=== PATIENT | female | born 1975 | race Caucasian/White ===

== ENCOUNTER 2022-03-24 08:20 | Emergency (ER) | payer OTHER ==
[2022-03-24] MEDS ORDERED: Pepcid 20 MG VIAL IV ONE ×2 (08:29→09:07)
[2022-03-24] MEDS ORDERED: solu-MEDROL 125 MG, Sterile H2O 10 ml 2 ML IV ONE ×2 (08:29)
[2022-03-24] MEDS ORDERED: BENADRYL 50 MG/ML IV ONE (08:29)
[2022-03-24] MEDS ORDERED: Sodium Chloride 0.9% 1000 ML 1,000 ML IV SCH (08:30)
[2022-03-24] MEDS ORDERED: ROCEPHIN 1 Gm-D5w 50 ml Bag** 1 G/50 ML IVPB IV STA (08:33)
[2022-03-24 09:04] LABS: Absolute Neutrophil Ct (ANC) 8.17 x10^3/uL (1.4-6.9); BASOPHIL % 0.6 % (0.0-0.4); Basophil (Absolute #) 0.07 x10^3/uL (0-0.4); Eosinophil % 7.1 % (0.00-5.0); Hematocrit 36.5 % (35-47); Hemoglobin 11.9 g/dL (12.0-16.0); IMMATURE GRAN # 0.04 x10^3u/L (0.00-0.03); IMMATURE GRAN % 0.4 % (0.00-0.4); Lymphocyte (Absolute #) 1.55 x10^3/uL (1.0-4.6); Lymphocytes % 13.8 % (24.0-44.0); Mean Cell Volume 85.5 fL (78-100); Mean Corpuscular Hemoglobin 27.9 pg (26-32); Mean Corpuscular Hgb Concent. 32.6 g/dL (32-36); Mean Platelet Volume 9.5 fL (7.5-11.0); Monocyte (Absolute #) 0.61 x10^3/uL (0.0-1.3); Monocytes % 5.4 % (0.0-12.0); Neutrophil % 72.7 % (36.0-66.0); Platelet Count 348 x10^3/uL (150-450); Red Blood Count 4.27 x10^6/uL (4.1-5.4); Red Cell Distribution Width 12.9 % (11.5-14.0); White Blood Count 11.2 x10^3/uL (4.0-10.5)
[2022-03-24] MEDS ORDERED: Sterile H2O 10 ml IJ ONE (09:07)
[2022-03-24] MEDS ORDERED: BENADRYL 50 MG/ML ONE (09:07)
[2022-03-24] MEDS ORDERED: solu-MEDROL ONE (09:08)
[2022-03-24] MEDS ORDERED: Sodium Chloride 0.9% 1000 ML 1,000 ML ONE (09:08)
[2022-03-24] MEDS ORDERED: ROCEPHIN 1 Gm-D5w 50 ml Bag** 1 G/50 ML IVPB IV ONE (09:08)
[2022-03-24 09:19] LABS: ALBUMIN 3.8 g/dL (3.5-5.0); ALKALINE PHOSPHATASE 118 U/L (38-126); ANION GAP 7.9 MEQ/L (5-15); BLOOD UREA NITROGEN 10 mg/dL (7-17); CHLORIDE 106 mmol/L (98-107); Calcium 8.4 mg/dL (8.4-10.2); Carbon Dioxide 27 mmol/L (22-30); Glucose 100 mg/dL (74-106); Potassium 4.1 mmol/L (3.5-5.1); SGOT/AST 27 U/L (14-36); SGPT/ALT 15 U/L (0-35); SODIUM 137 mmol/L (137-145); Total Protein 7.6 g/dL (6.3-8.2)
[2022-03-24 09:25] LABS: Creatinine 1 0.75 mg/dL (0.52-1.04); EST GLOMERULAR FILTRATION RATE > 60.0 ML/MIN
--- NOTE | 2022-03-24 09:41 | ERPHSYRPT ---
- History of Present Illness Time Seen by Provider: 03/24/22 08:40 Source: patient Exam Limitations: no limitations Patient Subjective Stated Complaint: Swelling of face, tightness in face and neck, SOB, rash to face, chest, stomach. Patient states that she scratched herse lf under her left eye a little over a week ago. Patient seen at the [facility] on 03/15/22 and given oral antibiotics and creams. Patient has completed the oral antibiotics but still uses the creams. Patient indicates the swelling and rash began prior to using the medications given to her at the [facility]. Patient states the swelling increased a lot during the night last night and the tightness and SOB is new this morning. Triage Nursing Assessment: Patient ambulated back to ER. No SOB noted; 02 sats 100% on room air. She is alert and oriented. Swelling is noted to face. Fluid noted in left eyelid. Crust and redness noted to left side of nose and down left side of face. Patient has a rash to her check and neck as well. The rash to chest and neck is difference in appearance than the one to her face. Neck and chest is in clusters of dry, scales. Physician History: Patient is a 46-year-old white female who presents with a complaint of facial swelling she had a small scratch self-inflicted to the side of the nose approximately 10 to 12 days ago after a few days she noticed some redness she went to the [facility] and was put on 2 topical antibiotics and Keflex by mouth. Prior to the onset of use of medicines she had swelling of the face this is spread with a rash now on the abdomen top of her head and a yellow crusted ra sh on the face primarily. Timing/Duration: week(s) (2) Quality: burning, itchy, painful Severity: moderate Location: scalp, face, torso Possible Causes: exposure to illness, exposure to allergen Allergies/Adverse Reactions: lithium Allergy (Verified 03/24/22 08:26) lurasidone [From Latuda] Allergy (Verified 03/24/22 08:26) morphine Allergy (Verified 03/24/22 08:25) prochlorperazine [From Compazine] Allergy (Verified 03/24/22 08:26) Sulfa (Sulfonamide Antibiotics) Allergy (Verified 03/24/22 08:26) Home Medications: Atorvastatin Calcium [Lipitor] 1 tab PO HS 03/24/22 [History] Brexpiprazole [Rexulti] 1 tab PO DAILY 03/24/22 [History] Hydroxyzine HCl 25 mg [Atarax 25 mg] See Rx Instructions .ROUTE .COMPLEX PRN 03/24/22 [History] Ketoconazole Cream [Nizoral CREAM] 1 dose TOP DAILY 03/24/22 [History] Levothyroxine Sodium 25 Mcg [Synthroid 25 Mcg] 1 tab PO DAILY 03/24/22 [History] Lumateperone Tosylate [Caplyta] 1 tab PO DAILY 03/24/22 [History] Mupirocin [Bactroban OINTMENT] 1 dose TOP TID 03/24/22 [History] Naltrexone HCl 1 tab PO DAILY 03/24/22 [History] Omeprazole 1 tab PO DAILY 03/24/22 [History] Propranolol HCl [Inderal ] 10 mg PO TID 03/24/22 [History] Vilazodone HCl 1 tab PO DAILY 03/24/22 [History] Hx Tetanus, Diphtheria Vaccination/Date Given: Yes Hx Influenza Vaccination/Date Given: Yes Hx Pneumococcal Vaccination/Date Given: No Immunizations Up to Date: Yes Travel Risk - International Travel Have you traveled outside of the country in past 3 weeks: No - Coronavirus Screening Are you exhibiting any of the following symptoms?: Yes Symptoms: Shortness of Breath Close contact with a COVID-19 positive Pt in past 14-21 Days: No - Vaccine Status Have you recieved a Covid-19 vaccination: Yes [employer]: [employer] - Vaccination Dates Date of 2cond Vaccination (if applicable): ? - Review of Systems Constitutional: No Fever, No Chills Eyes: No Symptoms Ears, Nose, & Throat: No Symptoms Respiratory: No Cough, No Dyspnea Cardiac: No Chest Pain, No Edema, No Syncope Abdominal/Gastrointestinal: No Abdominal Pain, No Nausea, No Vomiting, No Diarrhea Genitourinary Symptoms: No Dysuria Musculoskeletal: No Back Pain, No Neck Pain Skin: Pruritis, Rash Neurological: No Dizziness, No Focal Weakness, No Sensory Changes Psychological: Anxiety, Depression, Mood Changes Endocrine: No Symptoms All Other Systems: Reviewed and Negative - Past Medical History Pertinent Past Medical History: Yes ENT History: Other Cardiac History: High Cholesterol, Hypertension Endocrine Medical History: Hypothyroidism GI Medical History: GERD, Gallbladder Disease Psycho-Social History: Anxiety, Bipolar, Other Other Medical History: IBS, PTSD, Insomnia - Past Surgical History Past Surgical History: Yes Gastrointestinal: Cholecystectomy Female Surgical History: Dilation & Curettage, Section, Tubal Ligation Other Surgical History: oral surgery, lasik, one ovary removed, cystic mass removal, coccyx removed - Social History Smoking Status: Never smoker Exposure to second hand smoke: No Drug Use: none Patient Lives Alone: No - Female History Hx Now: No - Nursing Vital Signs Nursing Vital Signs: Initial Vital Signs Temperature 98 F 03/24/22 08:29 Pulse Rate 82 03/24/22 08:29 Respiratory Rate 18 03/24/22 08:29 Blood Pressure 118/93 03/24/22 08:29 O2 Sat by Pulse Oximetry 100 03/24/22 08:29 Pain Scale Pain Intensity 0 - Physical Exam General Appearance: no apparent distress, alert Eye Exam: PERRL/EOMI, eyes nml inspection Ears, Nose, Throat Exam: normal ENT inspection, pharynx normal, moist mucous membranes Neck Exam: normal inspection, non-tender, supple, full range of motion Respiratory Exam: normal breath sounds, lungs clear, No respiratory distress Cardiovascular Exam: regular rate/rhythm, normal heart sounds Gastrointestinal/Abdomen Exam: soft, mass, No tenderness Back Exam: normal inspection, normal range of motion, No CVA tenderness, No vertebral tenderness Extremity Exam: normal inspection, normal range of motion Neurologic Exam: alert, oriented x 3, cooperative, normal mood/affect, sensation nml, No motor deficits Skin Exam: rash, other (There is a honey colored crusting rash on both sides of the face and the nose area. There is a slightly erythematous area on the top of the scalp and the lower abdomen.) SpO2 Interpretation: normal SpO2: 100 O2 Delivery: Room Air - Course Nursing assessment & vital signs reviewed: Yes - Radiology Exams Chest X-ray Interpretation: Reviewed by me, Negative Ordered Tests: Active Orders 24 hr Category Date Time Status IV Insertion STAT Care 03/24/22 08:29 Active CHEST 1 VIEW (PORTABLE) Stat Exams 03/24/22 08:29 Completed BLOOD CULTURE Stat Lab 03/24/22 09:00 Received CBC W DIFF Stat Lab 03/24/22 09:00 Completed CMP Stat Lab 02/01/23 09:00 Completed CULTURE,WOUND Stat Lab 03/24/22 09:25 Ordered Lactic Acid Stat Lab 03/24/22 09:00 Completed SED RATE [Erythrocyte Sedimentation Rate] Stat Lab 03/24/22 09:00 Completed Medication Summary Generic Name Dose Route Start Last Admin Trade Name Freq PRN Reason Stop Dose Admin Sodium Chloride 1,000 mls @ 100 mls/hr 03/24/22 08:30 03/24/22 09:11 Sodium Chloride 0.9% 1000 Ml IV 04/23/22 08:29 100 mls/hr .Q10H AMARILYS Administration Doxycycline Hyclate 100 mg/ 100 mls @ 100 mls/hr 03/24/22 10:00 Dextrose IV 04/23/22 09:59 Q12HT AMARILYS Discontinued Medications Generic Name Dose Route Start Last Admin Trade Name Jackq PRN Reason Stop Dose Admin Methylprednisolone Sodium 0 mg 03/24/22 08:29 03/24/22 09:16 Succinate 125 mg/ Sterile IV 03/24/22 08:30 125 mg Water 2 ml STAT ONE Administration Diphenhydramine HCl 50 mg 03/24/22 08:29 03/24/22 09:18 Diphenhydramine Hcl 50 Mg/Ml Vial IV 03/24/22 08:30 50 mg STAT ONE Administration Diphenhydramine HCl Confirm 03/24/22 09:07 Diphenhydramine Hcl 50 Mg/Ml Vial Administered 03/24/22 09:08 Dose 50 mg .ROUTE .STK-MED ONE Famotidine 20 mg 03/24/22 08:29 03/24/22 09:18 Famotidine 20 Mg/1 Vial IV 03/24/22 08:30 20 mg STAT ONE Administration Famotidine Confirm 03/24/22 09:07 Famotidine 20 Mg/1 Vial Administered 03/24/22 09:08 Dose 20 mg IV .STK-MED ONE Ceftriaxone Sodium/Dextrose 1 g in 50 mls @ 100 mls/hr 03/24/22 08:33 03/24/22 09:19 Rocephin 1 Gm-D5w 50 Ml Bag IV 03/24/22 09:02 100 mls/hr STAT STA 100 mls/hr Administration Ceftriaxone Sodium/Dextrose Confirm 03/24/22 09:08 Rocephin 1 Gm-D5w 50 Ml Bag Administered 03/24/22 09:09 Dose 1 g in 50 mls @ ud IV .STK-MED ONE Methylprednisolone Sodium Succinate Confirm 03/24/22 09:08 Methylprednis Sod Succ 125 Mg/2 Ml Vial Administered 03/24/22 09:09 Dose 125 mg .ROUTE .STK-MED ONE Sterile Water Confirm 03/24/22 09:07 Water For Injection,Sterile 10 Ml Vial Administered 03/24/22 09:08 Dose 10 ml IJ .STK-MED ONE Lab/Rad Data: Laboratory Result Diagrams 03/24/22 09:00 03/24/22 09:00 Laboratory Results 03/24/22 03/24/22 03/24/22 Range/Units 09:00 09:00 09:00 WBC (4.0-10.5) x10^3/uL RBC (4.1-5.4) x10^6/uL Hgb (12.0-16.0) g/dL Hct (35-47) % MCV (78-100) fL MCH (26-32) pg MCHC (32-36) g/dL RDW (11.5-14.0) % Plt Count (150-450) x10^3/uL MPV (7.5-11.0) fL Gran % (36.0-66.0) % Immature Gran % (Auto) (0.00-0.4) % Nucleat RBC Rel Count (0.00-0.1) % Eos # (Auto) (0-0.5) x10^3/uL Immature Gran # (Auto) (0.00-0.03) x10^3u/L Absolute Lymphs (auto) (1.0-4.6) x10^3/uL Absolute Monos (auto) (0.0-1.3) x10^3/uL Absolute Nucleated RBC (0.00-0.01) x10^3u/L Lymphocytes % (24.0-44.0) % Monocytes % (0.0-12.0) % Eosinophils % (0.00-5.0) % Basophils % (0.0-0.4) % Absolute Granulocytes (1.4-6.9) x10^3/uL Basophils # (0-0.4) x10^3/uL ESR 2 (0-20) mm/hr Sodium 137 (137-145) mmol/L Potassium 4.1 (3.5-5.1) mmol/L Chloride 106 (98-107) mmol/L Carbon Dioxide 27 (22-30) mmol/L Anion Gap 7.9 (5-15) MEQ/L BUN 10 (7-17) mg/dL Creatinine 0.75 (0.52-1.04) mg/dL Estimated GFR > 60.0 ML/MIN Glucose 100 (74-106) mg/dL Lactic Acid 1.1 (0.4-2.0) Calcium 8.4 (8.4-10.2) mg/dL Total Bilirubin 0.60 (0.2-1.3) mg/dL AST 27 (14-36) U/L ALT 15 (0-35) U/L Alkaline Phosphatase 118 (38-126) U/L Serum Total Protein 7.6 (6.3-8.2) g/dL Albumin 3.8 (3.5-5.0) g/dL 03/24/22 Range/Units 09:00 WBC 11.2 H (4.0-10.5) x10^3/uL RBC 4.27 (4.1-5.4) x10^6/uL Hgb 11.9 L (12.0-16.0) g/dL Hct 36.5 (35-47) % MCV 85.5 (78-100) fL MCH 27.9 (26-32) pg MCHC 32.6 (32-36) g/dL RDW 12.9 (11.5-14.0) % Plt Count 348 (150-450) x10^3/uL MPV 9.5 (7.5-11.0) fL Gran % 72.7 H (36.0-66.0) % Immature Gran % (Auto) 0.4 (0.00-0.4) % Nucleat RBC Rel Count 0.0 (0.00-0.1) % Eos # (Auto) 0.80 H (0-0.5) x10^3/uL Immature Gran # (Auto) 0.04 H (0.00-0.03) x10^3u/L Absolute Lymphs (auto) 1.55 (1.0-4.6) x10^3/uL Absolute Monos (auto) 0.61 (0.0-1.3) x10^3/uL Absolute Nucleated RBC 0.00 (0.00-0.01) x10^3u/L Lymphocytes % 13.8 L (24.0-44.0) % Monocytes % 5.4 (0.0-12.0) % Eosinophils % 7.1 H (0.00-5.0) % Basophils % 0.6 (0.0-0.4) % Absolute Granulocytes 8.17 H (1.4-6.9) x10^3/uL Basophils # 0.07 (0-0.4) x10^3/uL ESR (0-20) mm/hr Sodium (137-145) mmol/L Potassium (3.5-5.1) mmol/L Chloride (98-107) mmol/L Carbon Dioxide (22-30) mmol/L Anion Gap (5-15) MEQ/L BUN (7-17) mg/dL Creatinine (0.52-1.04) mg/dL Estimated GFR ML/MIN Glucose (74-106) mg/dL Lactic Acid (0.4-2.0) Calcium (8.4-10.2) mg/dL Total Bilirubin (0.2-1.3) mg/dL AST (14-36) U/L ALT (0-35) U/L Alkaline Phosphatase (38-126) U/L Serum Total Protein (6.3-8.2) g/dL Albumin (3.5-5.0) g/dL - Progress Progress: improved - Departure Departure Disposition: Home Clinical Impression: Impetigo, Eczema Condition: Stable Critical Care Time: No Instructions: Impetigo (DC) Prescriptions: Prednisone 10 mg [Deltasone 10 mg] 20 mg PO TID 6 Days #24 tablet Doxycycline Hyclate 100 mg [Vibramycin 100 MG] 100 mg PO BID 10 Days #20 tab
--- NOTE | 2022-03-24 09:48 | XRAY ---
Indication: Short of breath. Comparison: None Portable chest demonstrates normal heart, lungs, and bony thorax with incidental left apical calcified granuloma.
[2022-03-24] MEDS ORDERED: VIBRAMYCIN 100 MG*** 100 MG in Dextrose 5%/Water IV Soln. 100ML PLUS BAG 100 ML IV SCH (10:00)
[2022-03-24] MEDS ORDERED: Vibramycin 100 MG ONE (11:17)
[2022-03-24] MEDS ORDERED: Vibramycin 100 MG PO ONE (11:19)
[2022-03-24 11:23] VITALS: BP 125/70; PULSE 73; O2SAT 97
== END 2022-03-24 11:30 | disposition home or self-care (01) ==
LOC: ED 08:20
DX: L01.00 Impetigo, unspecified (principal); L01.1 Impetiginization of other dermatoses; E78.5 Hyperlipidemia, unspecified; I10 Essential (primary) hypertension; Z79.52 Long term (current) use of systemic steroids; Z79.899 Other long term (current) drug therapy
CPT/HCPCS: 36000; 36415; 71045; 80053; 83605; 85025; 85652; 86140; 87040; 87070; 96365; 96374; 96375; 99284; J0696; J1200; J2930; A9270-GY

== ENCOUNTER 2023-05-05 17:37 | Emergency (ER) | payer OTHER ==
[2023-05-05 18:38] VITALS: TEMP 98.7
[2023-05-05 19:08] LABS: Absolute Neutrophil Ct (ANC) 5.35 x10^3/uL (1.4-6.9); BASOPHIL % 0.9 % (0.0-0.4); Basophil (Absolute #) 0.07 x10^3/uL (0-0.4); Eosinophil (Absolute #) 0 x10^3/uL (0-0.5); Hematocrit 33.1 % (35-47); Hemoglobin 10.3 g/dL (12.0-16.0); IMMATURE GRAN # 0.03 x10^3u/L (0.00-0.03); IMMATURE GRAN % 0.4 % (0.00-0.4); Lymphocyte (Absolute #) 1.96 x10^3/uL (1.0-4.6); Lymphocytes % 24.5 % (24.0-44.0); Mean Cell Volume 85.5 fL (78-100); Mean Corpuscular Hemoglobin 26.6 pg (26-32); Mean Corpuscular Hgb Concent. 31.1 g/dL (32-36); Monocytes % 7.5 % (0.0-12.0); Neutrophil % 66.7 % (36.0-66.0); Platelet Count 328 x10^3/uL (150-450); Red Blood Count 3.87 x10^6/uL (4.1-5.4); Red Cell Distribution Width 13.1 % (11.5-14.0)
[2023-05-05 19:36] LABS: ACETAMINOPHEN < 10 ug/ml (10-30); ALBUMIN 3.7 g/dL (3.5-5.0); ALKALINE PHOSPHATASE 94 U/L (38-126); ANION GAP 11.6 MEQ/L (5-15); BLOOD UREA NITROGEN 12 mg/dL (7-17); CHLORIDE 108 mmol/L (98-107); Calcium 8.5 mg/dL (8.4-10.2); Carbon Dioxide 25 mmol/L (22-30); Creatinine 1 1.01 mg/dL (0.52-1.04); EST GLOMERULAR FILTRATION RATE 68.2 ML/MIN; ETHYL ALCOHOL < 10 mg/dL (0-10); Glucose 98 mg/dL (74-106); Potassium 3.6 mmol/L (3.5-5.1); SALICYLATE < 1.0 mg/dL (2-20); SGOT/AST 19 U/L (14-36); SGPT/ALT 14 U/L (0-35); SODIUM 140 mmol/L (135-145); Total Protein 7.3 g/dL (6.3-8.2)
[2023-05-05 19:48] LABS: Appearance Turbid (Clear); Bilirubin Small (Negative); Blood Moderate (Negative); Epithelial Cells None Seen /HPF (None Seen); Glucose, Urine Negative (Negative); Hyaline Casts NONE SEEN /LPF (0-2); Ketones Negative (Negative); Leukocyte Esterase Moderate (Negative); Nitrite Positive (Negative); Protein,Urine Dip 100 (Negative); RBC >100 /HPF (0-5); Specific Gravity 1.025 (1.005-1.030); Urobilinogen 0.2 mg/dL (0.2); WBC 21-50 /HPF (0-5)
[2023-05-05 19:49] LABS: ADD URINE CULTURE? YES (NO); Bacteria Many /HPF (None Seen)
[2023-05-05] MEDS ORDERED: KEFLEX 500 MG ONE (19:59)
[2023-05-05] MEDS: KEFLEX 500 MG PO ONE (20:00)
[2023-05-05 20:15] LABS: Amphetamine,Urine NEGATIVE (NEGATIVE); Barbiturate,Urine NEGATIVE (NEGATIVE); Benzodiazepine,Urine NEGATIVE (NEGATIVE); Cocaine,Urine NEGATIVE (NEGATIVE); Methadone,Urine NEGATIVE (NEGATIVE); Opiate,Urine NEGATIVE (NEGATIVE); PCP,Urine NEGATIVE (NEGATIVE); THC,Urine NEGATIVE (NEGATIVE)
--- NOTE | 2023-05-05 20:21 | ERPHSYRPT ---
- History of Present Illness Time Seen by Provider: 05/05/23 18:55 Patient Subjective Stated Complaint: C/O feeling sad, depressed. Patient with suicidal ideations today. States she concidered driving herself into a tree to day in her vehicle and believes that she would have done it if her wouldn't have been in the vehicle with her. Triage Nursing Assessment: Patient brought back to ER with a staff member from the [facility]. Patient is anxious and tearful at times. She is cooperative with staff. AGUSTIN SU. No SOB. Physician History: 47-year-old female with history of anxiety/depression/bipolar disorder/PTSD presented in the ER with suicidal ideations from [facility]. Patient reports she has been feeling low for quite some time and feels better to be . Patient reports already has of hopelessness/helplessness. This morning she was driving with her and all of a sudden she started to feel suicidal and expressed her thoughts of driving truck into the trees to make an end of this. Denies any homicidal ideations. Patient denies any alcohol/substance use. No previous suicidal attempts but did have thoughts without any plans. Allergies/Adverse Reactions: lithium Allergy (Verified 05/05/23 18:09) lurasidone [From Latuda] Allergy (Verified 05/05/23 18:09) morphine Allergy (Verified 05/05/23 18:09) prochlorperazine [From Compazine] Allergy (Verified 05/05/23 18:09) Sulfa (Sulfonamide Antibiotics) Allergy (Verified 05/05/23 18:09) Home Medications: Atorvastatin Calcium [Lipitor] 20 mg PO HS 03/24/22 [History] Hydroxyzine HCl 25 mg [Atarax 25 mg] See Rx Instructions .ROUTE .COMPLEX PRN 03/24/22 [History] Levothyroxine Sodium 25 Mcg [Synthroid 25 Mcg] 1 tab PO DAILY 03/24/22 [History] Lumateperone Tosylate [Caplyta] 42 mg PO DAILY 03/24/22 [History] Omeprazole 1 tab PO DAILY 03/24/22 [History] Propranolol HCl [Inderal ] 15 mg PO TID 03/24/22 [History] Famotidine 1 tab PO HS 05/05/23 [History] Vilazodone HCl 1 tab PO DAILY 05/05/23 [History] Vilazodone HCl 1 tab PO DAILY 05/05/23 [History] Hx Tetanus, Diphtheria Vaccination/Date Given: Yes Hx Influenza Vaccination/Date Given: Yes Hx Pneumococcal Vaccination/Date Given: No Immunizations Up to Date: Yes Travel Risk - International Travel Have you traveled outside of the country in past 3 weeks: No - Coronavirus Screening Are you exhibiting any of the following symptoms?: No Close contact with a COVID-19 positive Pt in past 14-21 Days: No - Vaccine Status Have you recieved a Covid-19 vaccination: Yes [employer]: [employer] - Vaccination Dates Date of 2cond Vaccination (if applicable): ? - Past Medical History Pertinent Past Medical History: Yes ENT History: Other Cardiac History: High Cholesterol, Hypertension Endocrine Medical History: Hypothyroidism GI Medical History: GERD, Gallbladder Disease Psycho-Social History: Anxiety, Bipolar, Depression, Other Other Medical History: IBS, PTSD, Insomnia - Past Surgical History Past Surgical History: Yes Gastrointestinal: Cholecystectomy Female Surgical History: Dilation & Curettage, Section, Tubal Ligation Other Surgical History: oral surgery, lasik, one ovary removed, cystic mass removal, coccyx removed - Social History Smoking Status: Never smoker Exposure to second hand smoke: No Drug Use: none Patient Lives Alone: No - Female History Hx Last Menstrual Period: NOW Hx Now: No (tubal) - Review of Systems Constitutional: No Symptoms Eyes: No Symptoms Ears, Nose, & Throat: No Symptoms Respiratory: No Symptoms Cardiac: No Symptoms Abdominal/Gastrointestinal: No Symptoms Genitourinary Symptoms: No Symptoms Musculoskeletal: No Symptoms Skin: No Symptoms Neurological: No Symptoms Psychological: Anxiety, Depression, Suicidal Ideations Endocrine: No Symptoms Hematologic/Lymphatic: No Symptoms Immunological/Allergic: No Symptoms - Nursing Vital Signs Nursing Vital Signs: Initial Vital Signs Temperature 98.7 F 05/05/23 18:16 Pulse Rate 85 05/05/23 18:16 Respiratory Rate 16 05/05/23 18:16 Blood Pressure 153/84 05/05/23 18:16 O2 Sat by Pulse Oximetry 97 05/05/23 18:16 Pain Scale Pain Intensity 0 - Physical Exam General Appearance: no apparent distress, alert, anxiety Eyes, Ears, Nose, Throat Exam: normal ENT inspection Neck Exam: normal inspection, non-tender, supple, full range of motion Respiratory Exam: normal breath sounds, lungs clear Cardiovascular Exam: regular rate/rhythm, normal heart sounds Gastrointestinal/Abdominal Exam: soft, normal bowel sounds, No tenderness Extremities Exam: normal inspection Current Suicidality: denies suicide plan Neurological Exam: alert, calm, insurance claim representative II-XII nml as tested, oriented x 3, No normal mood/affect Appearance: appropriate appearance, appropriate insight, neat, no memory impairment Behavior/Eye Contact/Speech: alert & cooperative, cooperative, good eye contact, normal speech Thoughts/Hallucinations: normal thought pattern, no apparent hallucination Skin Exam: normal color SpO2 Interpretation: normal SpO2: 97 O2 Delivery: Room Air Ordered Tests: Active Orders 24 hr Category Date Time Status Clean Catch Urine Specimen STAT Care 05/05/23 18:51 Active ACETAMINOPHEN Stat Lab 05/05/23 19:00 Completed CBC W DIFF Stat Lab 05/05/23 19:00 Completed CMP Stat Lab 05/05/23 19:00 Completed CULTURE,URINE Stat Lab 05/05/23 18:54 Received ETHYL ALCOHOL Stat Lab 05/05/23 19:00 Completed SALICYLATE Stat Lab 05/05/23 19:00 Completed UA W/RFX UR CULTURE Stat Lab 05/05/23 18:54 Completed Urine Triage Profile Stat Lab 05/05/23 18:55 Completed Medication Summary Discontinued Medications Generic Name Dose Route Start Last Admin Trade Name Jackq PRN Reason Stop Dose Admin Cephalexin HCl 500 mg 05/05/23 19:50 05/05/23 20:00 Cephalexin Mh500 Mg Capsule PO 05/05/23 19:51 500 mg STAT ONE Administration Cephalexin HCl Confirm 05/05/23 19:59 Cephalexin Mh500 Mg Capsule Administered 05/05/23 20:00 Dose 500 mg .ROUTE .STtrueEX-MED ONE Lab/Rad Data: Laboratory Result Diagrams 05/05/23 19:00 05/05/23 19:00 Laboratory Results 05/05/23 05/05/23 05/05/23 Range/Units 19:00 19:00 18:55 WBC 8.0 (4.0-10.5) x10^3/uL RBC 3.87 L (4.1-5.4) x10^6/uL Hgb 10.3 L (12.0-16.0) g/dL Hct 33.1 L (35-47) % MCV 85.5 (78-100) fL MCH 26.6 (26-32) pg MCHC 31.1 L (32-36) g/dL RDW 13.1 (11.5-14.0) % Plt Count 328 (150-450) x10^3/uL MPV 9.0 (7.5-11.0) fL Gran % 66.7 H (36.0-66.0) % Immature Gran % (Auto) 0.4 (0.00-0.4) % Nucleat RBC Rel Count 0.0 (0.00-0.1) % Eos # (Auto) 0 (0-0.5) x10^3/uL Immature Gran # (Auto) 0.03 (0.00-0.03) x10^3u/L Absolute Lymphs (auto) 1.96 (1.0-4.6) x10^3/uL Absolute Monos (auto) 0.60 (0.0-1.3) x10^3/uL Absolute Nucleated RBC 0.00 (0.00-0.01) x10^3u/L Lymphocytes % 24.5 (24.0-44.0) % Monocytes % 7.5 (0.0-12.0) % Eosinophils % 0.0 (0.00-5.0) % Basophils % 0.9 (0.0-0.4) % Absolute Granulocytes 5.35 (1.4-6.9) x10^3/uL Basophils # 0.07 (0-0.4) x10^3/uL Sodium 140 (135-145) mmol/L Potassium 3.6 (3.5-5.1) mmol/L Chloride 108 H (98-107) mmol/L Carbon Dioxide 25 (22-30) mmol/L Anion Gap 11.6 (5-15) MEQ/L BUN 12 (7-17) mg/dL Creatinine 1.01 (0.52-1.04) mg/dL Estimated GFR 68.2 ML/MIN Glucose 98 (74-106) mg/dL Calcium 8.5 (8.4-10.2) mg/dL Total Bilirubin 0.30 (0.2-1.3) mg/dL AST 19 (14-36) U/L ALT 14 (0-35) U/L Alkaline Phosphatase 94 (38-126) U/L Serum Total Protein 7.3 (6.3-8.2) g/dL Albumin 3.7 (3.5-5.0) g/dL Urine Color (Yellow) Urine Appearance (Clear) Urine pH (4.6-8.0) Ur Specific [place] (1.005-1.030) Urine Protein (Negative) Urine Glucose (UA) (Negative) mg/dL Urine Ketones (Negative) Urine Blood (Negative) Urine Nitrite (Negative) Urine Bilirubin (Negative) Urine Urobilinogen (0.2) mg/dL Ur Leukocyte Esterase (Negative) U Hyaline Cast (Auto) (0-2) /LPF Urine Microscopic RBC (0-5) /HPF Urine Microscopic WBC (0-5) /HPF Ur Epithelial Cells (None Seen) /HPF Urine Bacteria (None Seen) /HPF Urine Culture Reflexed (NO) Salicylates < 1.0 L (2-20) mg/dL Urine Opiates Level NEGATIVE (NEGATIVE) Ur Methadone NEGATIVE (NEGATIVE) Acetaminophen < 10 L (10-30) ug/ml Urine Barbiturates NEGATIVE (NEGATIVE) Ur Phencyclidine (PCP) NEGATIVE (NEGATIVE) Urine Amphetamine NEGATIVE (NEGATIVE) U Benzodiazepine Level NEGATIVE (NEGATIVE) Urine Cocaine NEGATIVE (NEGATIVE) Urine Marijuana (THC) NEGATIVE (NEGATIVE) Ethyl Alcohol < 10 (0-10) mg/dL 05/05/23 Range/Units 18:54 WBC (4.0-10.5) x10^3/uL RBC (4.1-5.4) x10^6/uL Hgb (12.0-16.0) g/dL Hct (35-47) % MCV (78-100) fL MCH (26-32) pg MCHC (32-36) g/dL RDW (11.5-14.0) % Plt Count (150-450) x10^3/uL MPV (7.5-11.0) fL Gran % (36.0-66.0) % Immature Gran % (Auto) (0.00-0.4) % Nucleat RBC Rel Count (0.00-0.1) % Eos # (Auto) (0-0.5) x10^3/uL Immature Gran # (Auto) (0.00-0.03) x10^3u/L Absolute Lymphs (auto) (1.0-4.6) x10^3/uL Absolute Monos (auto) (0.0-1.3) x10^3/uL Absolute Nucleated RBC (0.00-0.01) x10^3u/L Lymphocytes % (24.0-44.0) % Monocytes % (0.0-12.0) % Eosinophils % (0.00-5.0) % Basophils % (0.0-0.4) % Absolute Granulocytes (1.4-6.9) x10^3/uL Basophils # (0-0.4) x10^3/uL Sodium (135-145) mmol/L Potassium (3.5-5.1) mmol/L Chloride (98-107) mmol/L Carbon Dioxide (22-30) mmol/L Anion Gap (5-15) MEQ/L BUN (7-17) mg/dL Creatinine (0.52-1.04) mg/dL Estimated GFR ML/MIN Glucose (74-106) mg/dL Calcium (8.4-10.2) mg/dL Total Bilirubin (0.2-1.3) mg/dL AST (14-36) U/L ALT (0-35) U/L Alkaline Phosphatase (38-126) U/L Serum Total Protein (6.3-8.2) g/dL Albumin (3.5-5.0) g/dL Urine Color Red A (Yellow) Urine Appearance Turbid A (Clear) Urine pH 5.0 (4.6-8.0) Ur Specific [place] 1.025 (1.005-1.030) Urine Protein 100 A (Negative) Urine Glucose (UA) Negative (Negative) mg/dL Urine Ketones Negative (Negative) Urine Blood Moderate A (Negative) Urine Nitrite Positive A (Negative) Urine Bilirubin Small A (Negative) Urine Urobilinogen 0.2 (0.2) mg/dL Ur Leukocyte Esterase Moderate A (Negative) U Hyaline Cast (Auto) NONE SEEN (0-2) /LPF Urine Microscopic RBC >100 A (0-5) /HPF Urine Microscopic WBC 21-50 A (0-5) /HPF Ur Epithelial Cells None Seen (None Seen) /HPF Urine Bacteria Many A (None Seen) /HPF Urine Culture Reflexed YES (NO) Salicylates (2-20) mg/dL Urine Opiates Level (NEGATIVE) Ur Methadone (NEGATIVE) Acetaminophen (10-30) ug/ml Urine Barbiturates (NEGATIVE) Ur Phencyclidine (PCP) (NEGATIVE) Urine Amphetamine (NEGATIVE) U Benzodiazepine Level (NEGATIVE) Urine Cocaine (NEGATIVE) Urine Marijuana (THC) (NEGATIVE) Ethyl Alcohol (0-10) mg/dL - Progress Progress: unchanged Progress Note: 05/05/23 20:20 47-year-old is evaluated for suicidal ideations with a plan along with other depressive symptoms lately. She has more negative thoughts lately. She has a UTI started on Keflex, medically she is cleared. Will obtain behavioral health evaluation. 05/05/23 21:18 Behavioral health evaluation is obtained and patient is excepted for inpatient a dmission at [facility] under care of Dr. Rust. Counseled pt/family regarding: lab results, diagnosis, need for follow-up Medical Desision Making - Independent Historian Additional History obtained from: Spouse - Diagnostic Testing Diagnostic test were ordered, analyzed, and reviewed by me: Yes - Risk of complications The pt has a high risk of morbidity or mortality based on: Decision regarding hospitilization or escalation of hosp level of care - Departure Departure Disposition: Transfer Clinical Impression: Depression with suicidal ideation Condition: Stable Critical Care Time: No Referrals: BLANE LOPEZ NP [Primary Care Provider] - Follow up/PCP as directed
[2023-05-05 20:31] VITALS: RESP 21
[2023-05-05 21:16] VITALS: BP 103/71; PULSE 79
[2023-05-05 21:19] VITALS: O2SAT 97
== END 2023-05-05 21:45 ==
LOC: ED 17:37
DX: F32.A Depression, unspecified (principal); R45.851 Suicidal ideations; E78.5 Hyperlipidemia, unspecified; I10 Essential (primary) hypertension; Z79.899 Other long term (current) drug therapy
CPT/HCPCS: 36415; 80053; 80143; 80179; 80307; 81001; 82077; 85025; 87086; 99284; A9270-GY